=== PATIENT | female | born 1980 | race Caucasian/White ===

== ENCOUNTER 2018-01-09 01:42 | Emergency (ER) | payer OTHER, MEDICAID ==
[~2018-01-09] VITALS: Ht 152.4 cm; Wt 90.7 kg
[~2018-01-09 01:42] MED LIST: ALKA-SELTZER P1 EA10 PO; AMOXICILLIN875 MG PO; GABAPENTIN 100100 MG PO; GUAIFEN-CODEIN120 ML PO; MICROGESTIN1 EAC1 PO; MOBIC7.5 MG PO; NORCO 5-325 TA1 EACH PO; PREDNISONE 10 M10 M1 PO; PROMETHAZINE/C118 ML PO; TRAMADOL 50 MG50 MG PO; TYLENOL WITH CO1 TA1 PO; ZPAK PO
[2018-01-09] MEDS ORDERED: CLONAZEPAM 0.50.5 M1 PO (02:00)
[2018-01-09] MEDS ORDERED: ZANAFLEX2 MG PO (02:00)
[2018-01-09] MEDS ORDERED: COZAAR 25 MG TA25 M1 PO (02:01)
[2018-01-09 02:22] LABS: ABSOLUTE BASOPHILS 0.1 thou/uL (0.0-0.2); ABSOLUTE EOSINOPHILS 0.4 thou/uL (0.0-0.7); ABSOLUTE LYMPHOCYTES 2.7 thou/uL (0.8-5.3); ABSOLUTE MONOCYTES 0.8 thou/uL (0.0-1.2); ABSOLUTE NEUTROPHILS 8.6 thou/uL (1.6-8.1); BASOPHILS 0.8 %; EOSINOPHILS 2.8 %; HEMATOCRIT 35.5 % (37.0-47.0); HEMOGLOBIN 11.9 gm/dL (12.0-15.0); LYMPHOCYTES 21.5 %; MCH 28.7 pg (26.0-34.0); MCHC 33.7 g/dL (28.0-37.0); MCV 85.4 fL (80.0-100.0); MONOCYTES 6.2 %; MPV 8.3 fl. (7.2-11.1); NUCLEATED RBCS 0 /100WBC; PLATELET COUNT* 325 thou/uL (150-400); POLYS 68.7 %; RBC 4.16 mil/uL (4.20-5.00); RDW-CV 13.4 % (10.5-14.5); WBC 12.5 thou/uL (4.0-11.0)
[2018-01-09 02:38] LABS: CALCIUM 8.3 mg/dL (8.5-10.1); CREATININE 0.9 mg/dL (0.6-1.3); POTASSIUM 3.9 mmol/L (3.5-5.1)
[2018-01-09 02:43] LABS: TOTAL BILIRUBIN 0.3 mg/dL (<0.1-1.0); TOTAL PROTEIN 6.8 g/dL (6.4-8.2)
[2018-01-09 03:34] LABS: URINE BILIRUBIN NEGATIVE (Negative); URINE BLOOD NEGATIVE (Negative); URINE CLARITY CLEAR; URINE COLOR YELLOW; URINE GLUCOSE-RANDOM NEGATIVE (Negative); URINE KETONES NEGATIVE (Negative); URINE LEUKOCYTES-REFLEX NEGATIVE (Negative); URINE NITRITE-REFLEX NEGATIVE (Negative); URINE PROTEIN NEGATIVE (Negative); URINE SPECIFIC GRAVITY 1.025 (1.005-1.030); URINE UROBILINOGEN 0.2 E.U./dl (0.2-1.0)
[2018-01-09] MEDS ORDERED: NORCO 5-325 TA1 EACH PO (05:41)
[2018-01-09] MEDS ORDERED: FLAGYL500 MG PO (05:41)
[2018-01-09] MEDS ORDERED: ZOFRAN ODT4 MG PO (05:41)
[2018-01-09 06:50] VITALS: BP 143/81
== END 2018-01-09 06:50 | disposition home or self-care (01) ==
LOC: M.ERS 01:42
PROVIDERS: Personal Emergency Response Attendant
DX: K57.92 Diverticulitis of intestine, part unspecified, without perforation or abscess without bleeding (principal); J45.909 Unspecified asthma, uncomplicated; F17.210 Nicotine dependence, cigarettes, uncomplicated; Z88.6 Allergy status to analgesic agent

== ENCOUNTER 2018-02-05 21:43 | Emergency (ER) | payer OTHER, MEDICAID ==
[~2018-02-05] VITALS: Ht 152.4 cm; Wt 90.7 kg
[~2018-02-05 21:43] MED LIST changes: +CLONAZEPAM 0.50.5 M1 PO; +COZAAR 25 MG TA25 M1 PO; +FLAGYL500 MG PO; +ZANAFLEX2 MG PO; +ZOFRAN ODT4 MG PO
[2018-02-05 23:01] LABS: ABSOLUTE BASOPHILS 0.1 thou/uL (0.0-0.2); ABSOLUTE EOSINOPHILS 0.3 thou/uL (0.0-0.7); ABSOLUTE LYMPHOCYTES 1.3 thou/uL (0.8-5.3); ABSOLUTE MONOCYTES 0.5 thou/uL (0.0-1.2); ABSOLUTE NEUTROPHILS 9.4 thou/uL (1.6-8.1); BASOPHILS 0.8 %; EOSINOPHILS 2.8 %; HEMATOCRIT 38.5 % (37.0-47.0); HEMOGLOBIN 12.8 gm/dL (12.0-15.0); LYMPHOCYTES 10.9 %; MCH 28.2 pg (26.0-34.0); MCHC 33.3 g/dL (28.0-37.0); MCV 84.8 fL (80.0-100.0); MPV 8.4 fl. (7.2-11.1); NUCLEATED RBCS 0 /100WBC; PLATELET COUNT* 312 thou/uL (150-400); POLYS 81.5 %; RBC 4.54 mil/uL (4.20-5.00); RDW-CV 13.7 % (10.5-14.5); WBC 11.5 thou/uL (4.0-11.0)
[2018-02-05 23:06] LABS: CALCIUM 8.2 mg/dL (8.5-10.1); CREATININE 0.7 mg/dL (0.6-1.3); POTASSIUM 3.9 mmol/L (3.5-5.1)
[2018-02-05 23:16] LABS: TOTAL BILIRUBIN 0.4 mg/dL (<0.1-1.0); TOTAL PROTEIN 7.2 g/dL (6.4-8.2)
[2018-02-05 23:16] LABS: URINE BILIRUBIN NEGATIVE (Negative); URINE BLOOD TRACE (Negative); URINE CLARITY SL CLOUDY; URINE COLOR YELLOW; URINE GLUCOSE-RANDOM NEGATIVE (Negative); URINE KETONES NEGATIVE (Negative); URINE LEUKOCYTES-REFLEX NEGATIVE (Negative); URINE NITRITE-REFLEX NEGATIVE (Negative); URINE PROTEIN TRACE (Negative)
[2018-02-06] MEDS ORDERED: NORCO 5-325 TA1 EACH PO (01:13)
[2018-02-06] MEDS ORDERED: FLAGYL500 MG PO (01:13)
[2018-02-06] MEDS ORDERED: CIPRO500 M1 PO (01:13)
[2018-02-06 01:31] VITALS: BP 120/64
== END 2018-02-06 01:32 | disposition home or self-care (01) ==
LOC: M.ERS 21:43
PROVIDERS: Nurse Practitioner Family
DX: K57.92 Diverticulitis of intestine, part unspecified, without perforation or abscess without bleeding (principal); J45.909 Unspecified asthma, uncomplicated; F17.210 Nicotine dependence, cigarettes, uncomplicated; Z88.6 Allergy status to analgesic agent

== ENCOUNTER 2018-03-06 23:52 | Emergency (ER) | payer OTHER, MEDICAID ==
[~2018-03-06] VITALS: Ht 152.4 cm; Wt 90.7 kg
[~2018-03-06 23:52] MED LIST changes: +CIPRO500 M1 PO
[2018-03-07] MEDS ORDERED: ULTRAM 50MG TAB50 MG PO (00:25)
[2018-03-07] MEDS ORDERED: AMOXICILLIN 50500 MG PO (00:25)
[2018-03-07 01:01] VITALS: BP 134/85
== END 2018-03-07 01:01 | disposition home or self-care (01) ==
LOC: M.ERS 23:52
DX: J02.9 Acute pharyngitis, unspecified (principal); M79.641 Pain in right hand; J45.909 Unspecified asthma, uncomplicated; Z98.890 Other specified postprocedural states; Z88.6 Allergy status to analgesic agent